=== PATIENT | female | born 1970 | race Caucasian/White ===

== ENCOUNTER 2016-09-18 01:49 | Emergency (ER) | payer SELFPAY ==
[~2016-09-18] VITALS: Ht 167.6 cm; Wt 86.2 kg
[2016-09-18] MEDS ORDERED: TOPROL XL25 MG PO (03:05)
[2016-09-18] MEDS ORDERED: PROZAC40 MG PO (03:05)
[2016-09-18] MEDS ORDERED: MICROZIDE12.5 MG PO (03:06)
[2016-09-18] MEDS ORDERED: PRILOSEC20 MG PO (03:06)
[2016-12-08] MEDS ORDERED: MICROZIDE12.5 MG PO (05:49)
[2016-12-08] MEDS ORDERED: TOPROL XL25 MG PO (05:49)
[2016-12-08] MEDS ORDERED: LASIX20 MG PO (05:50)
[2016-12-08] MEDS ORDERED: KLONOPIN1 MG PO (05:51)
[2016-12-10] MEDS ORDERED: BACTRIM DS TAB1 EACH PO (09:28)
== END 2016-09-18 03:00 | disposition short-term general hospital (02) ==
LOC: ER 01:49
DX: M25.531 Pain in right wrist (principal); M79.641 Pain in right hand; R20.0 Anesthesia of skin
CPT/HCPCS: J1885